=== PATIENT | female | born 1980 | race Asian ===

== ENCOUNTER 2023-10-22 06:22 | Day surgery (SDC) | payer SELFPAY ==
[2023-10-17 11:26] VITALS: BMI 18.3
[2023-10-22] MEDS ORDERED: BACITRACIN ZINC 15 GM TUBE TOPICAL OINTMENT ONE (07:19)
[2023-10-22] MEDS ORDERED: BACITRACIN/POLYMYXIN OPH OINT 3.5 GM TUBE ONE (07:19)
[2023-10-22] MEDS ORDERED: LIDOCAINE 1%/EPI 1:100000 (20 ML MULTI DOSE VIAL) ONE (07:20)
[2023-10-22] MEDS ORDERED: BSS (NA/CA/MG/K) BALANCED SALT SOLUTION OPHTH SOLN 15 ML BOTTLE ONE (07:20)
[2023-10-22] MEDS ORDERED: LIDOCAINE HCL/PF 2% SDV 5ML VIAL ONE (07:36)
[2023-10-22] MEDS ORDERED: MIDAZOLAM HCL 2 MG/2 ML SINGLE DOSE VIAL ONE (07:36)
[2023-10-22] MEDS ORDERED: PROPOFOL 20 ML ONE ×3 (07:36→08:43)
[2023-10-22] MEDS ORDERED: DEXAMETHASONE SOD PHOSPHATE 4 MG/1 ML VIAL ONE (07:36)
[2023-10-22] MEDS ORDERED: ONDANSETRON 4 MG/2 ML VIAL ONE (07:36)
[2023-10-22] MEDS ORDERED: ceFAZolin SODIUM 1 GM VIAL ONE (07:36)
[2023-10-22] MEDS ORDERED: TRANEXAMIC ACID 1000 MG/10 ML VIAL ONE (07:47)
[2023-10-22] MEDS ORDERED: ePHEDrine SULFATE 50 MG/1 ML AMPULE ONE (08:15)
[2023-10-22] MEDS ORDERED: PROPOFOL 60 ML ONE (09:09)
[2023-10-22] MEDS ORDERED: oxyCODONE HCL 5 MG TABLET PO PRN ×2 (09:55)
[2023-10-22] MEDS ORDERED: ONDANSETRON 4 MG/2 ML VIAL IVPUSH PRN (10:00)
[2023-10-22] MEDS ORDERED: LACTATED RINGERS SOLUTION 1,000 ML IV SCH ×2 (10:00)
[2023-10-22] MEDS ORDERED: PATIENT'S OWN MEDICATION (NON-FORMULARY) (Timolol Maleate/Pf [Timolol Maleate 0.5% Eye Dro OD SCH (10:00)
[2023-10-22] MEDS ORDERED: TIMOLOL 0.5% OPHTHALMIC SOL 5 ML BOTTLE ONE (10:13)
[2023-10-22 11:20] VITALS: TEMP 97.1
[2023-10-22 11:54] VITALS: RESP 17
[2023-10-22 12:36] VITALS: BP 98/58; PULSE 65
[2023-10-22] MEDS ORDERED: ONDANSETRON 4 MG/2 ML VIAL IVPB PRN (16:01)
== END 2023-10-22 12:27 | disposition home or self-care (01) ==
LOC: FASU 06:22
PROVIDERS: ATTEND Plastic Surgery
PROC: 080Q0ZZ Alteration of Right Lower Eyelid, Open Approach (ICD-10-PCS; 2023-10-22)
PROC: 0HB1XZZ Excision of Face Skin, External Approach (ICD-10-PCS; 2023-10-22)
PROC: 080R0ZZ Alteration of Left Lower Eyelid, Open Approach (ICD-10-PCS; principal; 2023-10-22 08:37)
DX: H02.89 Other specified disorders of eyelid (principal); L82.1 Other seborrheic keratosis
CPT/HCPCS: 81025; 94760